=== PATIENT | male | born 1985 | race Caucasian/White ===

== ENCOUNTER 2024-07-06 13:50 | Emergency (ER) | payer OTHER, SELFPAY ==
[2024-07-06 14:02] VITALS: BP 113/63; PULSE 70; RESP 18; TEMP 36.6; O2SAT 99; BMI 24.7
--- NOTE | 2024-07-06 14:24 | ED.ABDPAIN ---
HPI - Abdominal Pain General Chief Complaint: Abdominal Pain Stated Complaint: Back/LRQ ABD/Groin Pain Time Seen by Provider: 07/06/24 14:24 Source: patient, RN notes reviewed and old records reviewed Mode of arrival: Ambulatory Limitations: no limitations History of Present Illness HPI narrative: 38-year-old male no reported medical issues who presents with complaint of pain that started in his lower back now radiates down his right leg at times. He states it also radiates to the front on both sides. Patient states he has had chronic back issues in the past he flies has had discomfort in the vertebral spine. But he states this is little bit lower feels different and he has not had radiation before. Patient states this back pain started after lifting a heavy individual. States it has been about 4 weeks has not resolved. Not rapidly worsening but not improving. Denies fevers or chills. No chest pain or shortness of breath, no syncope. No nausea or vomiting. Normal bowel movements, no incontinence. No urinary changes no dysuria urgency frequency or incontinence. No little bit of tingling in the right groin but no where else. No saddle anesthesia. Normal gait. He states movement makes it worse getting up after being seated for long periods of time makes it worse. Patient states incidentally has also had a rash between his buttocks for the past year. He states it occurred after sliding down rock face into a still water upon in [place]. He states after the rash developed he would never resolved despite putting an antifungal on it topically twice daily until the bottle was completed. He states it is quite itchy he often scratches it we will sometimes have a little bit of drainage. Patient states he presents today because he went to the [facility] and told them it would be July until he could follow-up. He recently moved back to the area. He states no daily medications, no recent surgeries. No known drug allergies. No tobacco, occasional alcohol, no recreational drugs. Related Data Previous Rx's Medication Instructions Recorded fluconazole 200 mg tablet 200 mg PO DAILY 2 weeks #14 tabs 07/06/24 (Diflucan) Allergies Allergy/AdvReac Type Severity Reaction Status Date / Time No Known Drug Allergies Allergy Verified 07/06/24 14:06 Review of Systems Review of Systems ROS Unobtainable: All systems reviewed & are unremarkable except as noted in HPI and below Patient History Social History Smoking Status: Never smoker Smoking Status: Never smoker alcohol intake frequency: 0-2 drinks per day Substance Use Type: does not use Exam Narrative Exam Narrative: GENERAL: Alert and oriented x three, male in mild distress HEENT: Head normocephalic, atraumatic, EOMI, pupils reactive, face symmetric, moist mucous membranes NECK: Supple, full range of motion CARDIOVASCULAR: Regular rate and rhythm without murmurs, rubs or gallops. RESPIRATORY: Breath sounds equal bilaterally, no wheezes rales or rhonchi. ABDOMEN: Soft, nontender. Normoactive bowel sounds all 4 quadrants. No guarding or rebound, rigidity, no mass : No CVA tenderness BACK: No cervical, thoracic or lumbar vertebral point tenderness. Patient has normal range of motion. Patient's gait is normal. Rectal exam is deferred. Muscle strength is 5/5 in lower extremities, DTRs are 2/4 and lower extremities. Dorsalis pedis and tibialis pulses are 2+ and lower extremities. Sensation is intact in the lower extremities. EXTREMITIES: Normal range of motion, no clubbing or edema. Neurovascularly intact NEUROLOGICAL: Cranial nerves II through XII grossly intact. Moving all extremities SKIN: Warm, dry, no petechiae, no rashes or lesions with exception of erythematous patchy and hyperkeratotic skin between the gluteal crease measuring about 6 cm x 2 cm there is no warmth or erythema, there is no active drainage. There is no foul odor. Patient is nontender to touch. Initial Vital Signs Initial Vital Signs: Vital Signs Temperature 97.8 F 07/06/24 14:02 Pulse Rate 70 07/06/24 14:02 Respiratory Rate 18 07/06/24 14:02 Blood Pressure 113/63 07/06/24 14:02 Pulse Oximetry 99 07/06/24 14:02 Oxygen Delivery Method Room Air 07/06/24 14:02 Course Orders Ordered: ED Orders 07/06/24 14:39 XR lumbar spine 2-3V Stat Discontinued Medications Ondansetron HCl (Ondansetron 4 Mg/2 Ml Inj) 4 mg IV NOW PRN PRN Reason: Nausea And Vomiting Ondansetron HCl (Ondansetron 4 Mg Odt) 4 mg PO NOW PRN PRN Reason: Nausea And Vomiting Vital Signs Vital signs: Vital Signs - 8 hr 07/06/24 14:02 07/06/24 14:26 07/06/24 14:27 Temperature 97.8 F Pulse Rate 70 69 Respiratory Rate 18 Blood Pressure 113/63 Pulse Oximetry 99 95 100 Oxygen Delivery Method Room Air 07/06/24 14:27 07/06/24 14:30 07/06/24 14:30 Temperature Pulse Rate 69 Respiratory Rate Blood Pressure 130/66 126/72 Pulse Oximetry 99 Oxygen Delivery Method Room Air 07/06/24 15:53 Temperature Pulse Rate 72 Respiratory Rate 16 Blood Pressure 128/71 Pulse Oximetry 100 Oxygen Delivery Method MDM - Abdominal Pain Lab Data Point of care testing: Urine Dip Bedside Urine Glucose Negative Bedside Urine Bilirubin - Negative Bedside Urine Ketone - Negative Urine Specific [place] 1.025 Bedside Urine Occult Blood - Negative Bedside Urine pH 6.0 Bedside Urine Protein - Negative Bedside Urine Urobilinogen - Negative Bedside Urine Nitrite - Negative Bedside Urine Leukocytes - Negative Esterase Imaging Data Lspine xray: Radiologist's Impression: [address] [address] XRay Report Signed Patient: Dejan Alfaro MR#: [id number] : 1985 Acct:[id number] Age/Sex: 38 / M Date of Service: 07/06/24 Loc: ED Accession Number: [id number] Procedure: XR lumbar spine 2-3V Ordering Provider: Ramila Miramontes D.O. PROCEDURE: XR LUMBAR SPINE 2-3V INDICATIONS: back pain x 4 weeks, down left leg, started after lifting TECHNIQUE: 3 views of the lumbar spine were acquired. COMPARISON: None. FINDINGS: Bones: 5 [id number] vertebrae are present. There is normal bony alignment. No vertebral body compression fractures. No suspicious bony lesions. Soft tissues: Overlying bowel gas pattern is normal. No suspicious soft tissue calcifications. IMPRESSION: No acute osseous abnormalities. No significant degenerative changes. Dictated by: Elkin Martel M.D. on 07/06/2024 at 15:19 Approved by: Elkin Martel M.D. 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 He states for the past 4 weeks after lifting another individual he had a new change in pain different location little bit lower radiates down his right leg and a little bit to the front on both sides. No other red flag symptoms. Because patient has had longstanding back pain with history of repetitive landing x-ray L-spine was obtained. This shows no acute change. poc urine is negative, shows signs of hematuria or infection. Patient's abdominal exam is overall benign. Patient does have a rash that has been longstanding for the past year between his buttocks, has not been worsening but has not ever improved. Suspect there is a fungal component he did try a topical antifungal but we will give him prescription for Diflucan. Patient recommended to follow up with primary care for his chronic back pain as well as evaluation of his rash. Discharge Plan Departure Patient Disposition: Home Clinical Impression: Lumbar radiculopathy Instructions: DI for Lumbar Radiculopathy Activity Restrictions/Additional Instructions: Please follow up with primary care for recheck. If you are continuing to have persistent pain you may benefit from physical therapy or additional workup or imaging. Your x-ray imaging does not show any acute changes today. I would recommend using an oral antifungal for the rash in the crease of your buttocks. If this does not improve over the next 1-2 weeks with the medication please follow up with primary care. Prescription was sent to [facility] in [place]. Please return for fevers, worsening abdominal back or flank pain, new loss of bowel or bladder control, new weakness, numbness or loss of sensation in your extremities or groin, if the rash on her buttocks is spreading or increasing in size or area. Prescriptions: New fluconazole [Diflucan] 200 mg tablet 200 mg PO DAILY 14 Days Qty: 14 0RF Stand Alone Forms: Patient Portal/API
[2024-07-06 14:26] VITALS: O2SAT 95
[2024-07-06 14:27] VITALS: BP 130/66; PULSE 69; O2SAT 100
[2024-07-06 14:30] VITALS: BP 126/72; PULSE 69; O2SAT 99
--- NOTE | 2024-07-06 14:39 | DI.RAD.S_ITS ---
PROCEDURE: XR LUMBAR SPINE 2-3V INDICATIONS: back pain x 4 weeks, down left leg, started after lifting TECHNIQUE: 3 views of the lumbar spine were acquired. COMPARISON: None. FINDINGS: Bones: 5 [id number] vertebrae are present. There is normal bony alignment. No vertebral body compression fractures. No suspicious bony lesions. Soft tissues: Overlying bowel gas pattern is normal. No suspicious soft tissue calcifications. IMPRESSION: No acute osseous abnormalities. No significant degenerative changes. Dictated by: Elkin Martel M.D. on 07/06/2024 at 15:19 Approved by: Elkin Martel M.D. on 07/06/2024 at 15:19
[2024-07-06 15:53] VITALS: BP 128/71; PULSE 72; RESP 16; O2SAT 100
== END 2024-07-06 16:01 | disposition home or self-care (01) ==
PROVIDERS: Emergency Provider Emergency Medicine
DX: M54.16 Radiculopathy, lumbar region (principal)
CPT/HCPCS: 36415; 72100; 81003; 99283